=== PATIENT | male | born 2000 | race Caucasian/White ===

== ENCOUNTER 2021-06-04 21:25 | Emergency (ER) | payer OTHER, SELFPAY ==
--- NOTE | ~2021-06-04 | XR_ITS ---
EXAMINATION: XR chest 2V DATE: 06/05/2021 01:32 INDICATION: Chest pain TECHNIQUE: PA and lateral views of the chest are obtained. COMPARISON: None available FINDINGS: The lungs are free of acute opacities. There is no pleural effusion or pneumothorax. The ca rdiomediastinal silhouette is normal. The visualized bones and soft tissues are unremarkable. IMPRESSION: 1. No acute cardiopulmonary abnormality. Reviewed, dictated and finalized at location A. STERED NURSE STEP DOWN
--- NOTE | ~2021-06-04 | XR_ITS ---
EXAMINATION: XR lumbar spine 2-3V DATE: 06/05/2021 01:33 INDICATION: Low back pain TECHNIQUE: Anteroposterior and lateral views of the lumbar spine, and cone-down lateral view of the l umbosacral junction were obtained. COMPARISON: None. FINDINGS: There are 2 mm of retrolisthesis of L5 on S1. Vertebral body alignment is otherwise maintai cesar. Mild anterior vertebral body wedging of T11 and L1 may be physiologic. The intervertebral disc s paces are maintained. IMPRESSION: 1. Mildly anterior vertebral body wedging of T11 and L1 which may be physiologic. Correlate for tende rness at this level. Reviewed, dictated and finalized at location A. ER [employer] IMPRESSION: 1. Mildly anterior vertebral body wedging of T11 and L1 which may be physiologi c. Correlate for tenderness at this level.
[2021-06-04 21:45] VITALS: BP 118/61; PULSE 91; RESP 18; TEMP 36.7; O2SAT 98
[2021-06-04 23:41] VITALS: BP 97/55; PULSE 71; RESP 18; TEMP 36.3; O2SAT 98
[2021-06-05 00:19] VITALS: BP 106/71; PULSE 71; RESP 16; TEMP 36.5; O2SAT 98
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
[2021-06-05] MEDS: IBUPROFEN 600 MG TABLET PO (01:06)
[2021-06-05] MEDS: CYCLOBENZAPRINE HCL 10 MG TABLET PO (01:06)
[2021-06-05 01:53] VITALS: BP 101/69; PULSE 73; RESP 18; O2SAT 98
== END 2021-06-05 01:53 | disposition home or self-care (01) ==
PROVIDERS: Emergency Provider Emergency Medicine
DX: S39.92XA Unspecified injury of lower back, initial encounter (principal); R07.89 Other chest pain; V43.32XA Unspecified car occupant injured in collision with other type car in nontraffic accident, initial encounter
CPT/HCPCS: 71046; 72100; 99284; A9270